=== PATIENT | male | born 1945 | race Caucasian/White ===

== ENCOUNTER 2019-02-20 06:16 | Day surgery (SDC) | payer OTHER ==
[2019-02-19 09:12] VITALS: BMI 25.7
[2019-02-20] MEDS ORDERED: PROPOFOL 20 ML ONE ×2 (08:02→08:07)
[2019-02-20] MEDS ORDERED: MIDAZOLAM HCL 2 MG/2 ML SINGLE DOSE VIAL ONE (08:02)
[2019-02-20] MEDS ORDERED: LIDOCAINE HCL/PF 2% SDV 5ML VIAL ONE (08:02)
[2019-02-20] MEDS ORDERED: ceFAZolin SODIUM 1 GM VIAL ONE (08:24)
[2019-02-20] MEDS ORDERED: ceFAZolin SODIUM 1 GM VIAL IVPB ONE (08:36)
[2019-02-20] MEDS ORDERED: KETOROLAC TROMETHAMINE 30 MG/1 ML VIAL ONE (08:44)
[2019-02-20 09:31] VITALS: TEMP 97.7
--- NOTE | 2019-02-20 10:48 | OP ---
Operative Note - Note: Operative Date: 02/20/19 Pre-Operative Diagnosis: Left Ureteral stone Operation: Left ESWL Findings: 7 mm ureteral stone Post-Operative Diagnosis: Same as Pre-op Surgeon: Keven Solares MD. Anesthesia: General Operative Report Dictated: Yes
[2019-02-20] MEDS ORDERED: ELECTROLYTE-148 SOLN 1,000 ML IV SCH (11:00)
[2019-02-20 12:36] VITALS: BP 139/68; PULSE 50
--- NOTE | 2019-02-20 13:27 | OP ---
DATE OF OPERATION: 02/20/2019 PREOPERATIVE DIAGNOSIS: Left ureteral calculus. POSTOPERATIVE DIAGNOSIS: Left ureteral calculus. PROCEDURE: Left electrohydraulic shock-wave lithotripsy. HISTORY: This is a very pleasant 73-year-old gentleman found on preoperative CAT scan to have a left hydronephrosis from an obstructing 7-mm midureteral stone. After discussing treatment options, the patient elected to undergo the above-stated procedure. Risks and benefits of treatment and alternative treatment discussed in detail. All questions were answered. BRIEF OPERATIVE NOTE: Patient was brought to the operating room. The stone was clearly visualized using 3D fluoroscopy. Intravenous antibiotics and sedation was administered. Approximately 3000 shocks were delivered in electromagnetic fashion. The stone appeared to fragment radiographically. Patient was brought to the recovery room in stable and satisfactory condition. MANJU BALL M.D. [id number]
== END 2019-02-20 10:35 | disposition home or self-care (01) ==
LOC: JASU-SURG 06:16
PROVIDERS: ATTEND Urology
PROC: 0TF7XZZ Fragmentation in Left Ureter, External Approach (ICD-10-PCS; principal; 2019-02-20 08:00)
DX: N20.1 Calculus of ureter (principal)